=== PATIENT | female | born 1980 | race Caucasian/White ===

== ENCOUNTER 2024-02-16 04:42 | Emergency (ER) | payer OTHER, SELFPAY ==
[2024-02-16 04:47] VITALS: BP 128/93
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
[2024-02-16] MEDS: AUGMENTIN 875 MG/125 MG 1 TABLET PO (05:27)
[2024-02-16] MEDS: ADACEL 0.5 ML IM (05:28)
[2024-02-16] MEDS: MOTRIN 600 MG PO (05:59)
== END 2024-02-16 06:55 | disposition home or self-care (01) ==
LOC: EMR 04:42
PROVIDERS: EMERGENCY PHYSICIAN Student in an Organized Health Care Education/Training Program
DX: S61.451A Open bite of right hand, initial encounter (principal); S61.411A Laceration without foreign body of right hand, initial encounter; M79.641 Pain in right hand; M62.81 Muscle weakness (generalized); R20.0 Anesthesia of skin; R20.2 Paresthesia of skin; Y04.1XXA Assault by human bite, initial encounter; Y93.89 Activity, other specified; Y92.89 Other specified places as the place of occurrence of the external cause; Y99.0 Civilian activity done for income or pay; Z23 Encounter for immunization; G40.909 Epilepsy, unspecified, not intractable, without status epilepticus; E03.9 Hypothyroidism, unspecified; F41.9 Anxiety disorder, unspecified; F32.A Depression, unspecified; Z88.8 Allergy status to other drugs, medicaments and biological substances
CPT/HCPCS: 99283; 90471; 73130; 90715